=== PATIENT | male | born 1960 | race Caucasian/White ===

== ENCOUNTER → 2017-07-16 | Emergency (ER) | payer OTHER ==
[~2017-07-16] VITALS: Ht 167.6 cm; Wt 98.0 kg
[~2017-07-16] MED LIST: AZITHROMYCIN250 MG; BIO T PRES-B L473 ML; COZAAR100 MG PO; LIPOCHOL PLUS0.5 MG; METFORMIN HCL1000 M1 PO; PERSANTINE50 MG PO; SYNTHROID200 MCG PO
== END | disposition home or self-care (01) ==
LOC: ER 08:58
DX: J06.9 Acute upper respiratory infection, unspecified (principal)

== ENCOUNTER → 2020-04-11 | Outpatient (CLI) | payer OTHER | END | disposition home or self-care (01) | LOC: MAMO-SONO 14:29 | PROVIDERS: ATTEND Specialist | DX: N62 Hypertrophy of breast (principal); N64.59 Other signs and symptoms in breast; N60.01 Solitary cyst of right breast ==

== ENCOUNTER 2020-04-22 12:25 | Outpatient (CLI) | payer OTHER | END 2020-04-22 13:07 | disposition home or self-care (01) | LOC: SONOGRAMA 12:25 | PROVIDERS: ATTEND Pathology Anatomic Pathology | DX: N63.10 Unspecified lump in the right breast, unspecified quadrant (principal); N64.59 Other signs and symptoms in breast ==

== ENCOUNTER 2021-07-08 13:26 | Emergency (ER) | payer OTHER ==
[~2021-07-08] VITALS: Ht 167.6 cm; Wt 100.7 kg
[2021-07-08] MEDS ORDERED: VALSARTAN160 MG PO (14:00)
[2021-07-08] MEDS ORDERED: SYNTHROID175 MCG PO (14:00)
[2021-07-08] MEDS ORDERED: LASIX40 MG (14:00)
== END 2021-07-08 20:29 | disposition home or self-care (01) ==
LOC: ER 13:26
DX: D64.9 Anemia, unspecified (principal); S70.02XA Contusion of left hip, initial encounter; V19.9XXA Pedal cyclist (driver) (passenger) injured in unspecified traffic accident, initial encounter

== ENCOUNTER 2021-07-15 10:17 | Outpatient (CLI) | payer OTHER ==
[~2021-07-15 10:17] MED LIST changes: +LASIX40 MG; +SYNTHROID175 MCG PO; +VALSARTAN160 MG PO
== END 2021-07-15 10:27 | disposition home or self-care (01) ==
LOC: NUCLEAR 10:17
DX: M47.897 Other spondylosis, lumbosacral region (principal)

== ENCOUNTER 2021-07-15 12:10 | Outpatient (CLI) | payer OTHER | END 2021-07-15 12:21 | disposition home or self-care (01) | LOC: RAD 12:10 | DX: M47.897 Other spondylosis, lumbosacral region (principal); S32.10XA Unspecified fracture of sacrum, initial encounter for closed fracture ==

== ENCOUNTER → 2022-01-15 | Outpatient (CLI) | payer OTHER | END | disposition home or self-care (01) | LOC: SONOGRAMA 10:31 | DX: M60.831 Other myositis, right forearm (principal) ==

== ENCOUNTER 2022-07-12 11:00 | Emergency (ER) | payer OTHER ==
[~2022-07-12] VITALS: Ht 167.6 cm; Wt 92.1 kg
[2022-07-12] MEDS ORDERED: GINKGO BILOBA30 MG PO (11:33)
[2022-07-12] MEDS ORDERED: CABERGOLINE0.5 MG PO (11:33)
[2022-07-12] MEDS ORDERED: COZAAR25 MG (11:34)
[2022-07-12] MEDS ORDERED: LEVOTHYROXINE25 MCG (11:34)
[2022-07-12] MEDS ORDERED: STEGLATRO5 MG (11:34)
[2022-07-12] MEDS ORDERED: GLUMETZA500 MG (11:34)
[2022-07-12] MEDS ORDERED: CARDURA1 MG (11:34)
[2022-07-12] MEDS ORDERED: CIALIS2.5 MG (11:35)
== END 2022-07-12 17:48 | disposition home or self-care (01) ==
LOC: ER 11:00
DX: G44.89 Other headache syndrome (principal); T38.3X5A Adverse effect of insulin and oral hypoglycemic [antidiabetic] drugs, initial encounter; Y92.89 Other specified places as the place of occurrence of the external cause; E03.8 Other specified hypothyroidism; I10 Essential (primary) hypertension; E11.9 Type 2 diabetes mellitus without complications; Z79.84 Long term (current) use of oral hypoglycemic drugs; Z79.4 Long term (current) use of insulin; G47.30 Sleep apnea, unspecified

== ENCOUNTER 2022-11-15 12:14 | Emergency (ER) | payer OTHER ==
[~2022-11-15] VITALS: Ht 167.6 cm; Wt 95.3 kg
[~2022-11-15 12:14] MED LIST changes: +CABERGOLINE0.5 MG PO; +CARDURA1 MG; +CIALIS2.5 MG; +COZAAR25 MG; +GINKGO BILOBA30 MG PO; +GLUMETZA500 MG; +LEVOTHYROXINE25 MCG; +STEGLATRO5 MG
== END 2022-11-15 17:33 | disposition home or self-care (01) ==
LOC: ER 12:14
DX: S56.891A Other injury of other muscles, fascia and tendons at forearm level, right arm, initial encounter (principal); X58.XXXA Exposure to other specified factors, initial encounter; Y93.H2 Activity, gardening and landscaping; Y92.9 Unspecified place or not applicable; Y99.9 Unspecified external cause status

== ENCOUNTER 2023-04-16 08:53 | Outpatient (CLI) | payer OTHER | END 2023-04-16 09:06 | disposition home or self-care (01) | LOC: RAD 08:53 | DX: Z01.811 Encounter for preprocedural respiratory examination (principal) ==

== ENCOUNTER 2024-12-18 10:54 | Outpatient (CLI) | payer OTHER | END 2024-12-18 11:00 | disposition home or self-care (01) | LOC: RAD 10:54 | DX: R07.82 Intercostal pain (principal); M94.0 Chondrocostal junction syndrome [Tietze]; M54.40 Lumbago with sciatica, unspecified side ==

== ENCOUNTER 2025-01-08 11:02 | Outpatient (CLI) | payer OTHER | END 2025-01-08 11:14 | disposition home or self-care (01) | LOC: TOM 11:02 | DX: I11.9 Hypertensive heart disease without heart failure (principal); E11.9 Type 2 diabetes mellitus without complications; R07.2 Precordial pain ==

== ENCOUNTER → 2025-01-25 07:06 | Outpatient (CLI) | payer OTHER | END | disposition home or self-care (01) | LOC: NUCLEAR 06:00 | PROVIDERS: ATTEND Specialist | DX: I11.9 Hypertensive heart disease without heart failure (principal) ==